=== PATIENT | female | born 1975 | race African-American/Black ===

== ENCOUNTER 2017-01-18 09:41 | Inpatient (IN) | payer OTHER ==
[2017-01-18 10:29] VITALS: BMI 22.6
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
[2017-01-18] MEDS ORDERED: guaiFENesin/D-METHORPHAN HB 10 ML UNIT-DOSE CUPS PO PRN (11:41)
[2017-01-18] MEDS ORDERED: IBUPROFEN 400 MG TABLET (FP) PO PRN (11:41)
[2017-01-18] MEDS ORDERED: MENTHOL/PHENOL 1 EACH UD MM PRN (11:41)
[2017-01-18] MEDS ORDERED: MAG HYDROX/AL HYDROX/SIMETH 30 ML UNIT-DOSE CUP PO PRN (11:41)
[2017-01-18] MEDS ORDERED: MAGNESIUM CITRATE 300 ML BOTTLE PO PRN (11:41)
[2017-01-18] MEDS ORDERED: LOPERAMIDE HCL 2 MG CAPSULE PO PRN (11:41)
[2017-01-18] MEDS ORDERED: P-EPHED 60MG/TRIPROLIDI 2.5MG TABLET PO PRN (11:41)
[2017-01-18] MEDS ORDERED: NICOTINE POLACRILEX 2 MG GUM BUC PRN (11:41)
[2017-01-18] MEDS ORDERED: ACETAMINOPHEN 325 MG TABLET (FP) PO PRN (11:41)
[2017-01-18] MEDS ORDERED: MAGNESIUM HYDROX 2400MG/30ML ORAL SUSPENSION 30 ML CUP PO PRN (11:41)
[2017-01-18] MEDS ORDERED: TUBERCULIN PPD 5 TU/0.1ML VIAL ID ONE (12:44)
[2017-01-18] MEDS: NICOTINE 21 MG/24 HOURS TOPICAL PATCH TD SCH (12:51)
[2017-01-18 14:00] LABS: MCH 34.1 pg (25.7-33.7); MEAN CELL VOLUME 100.2 fl (80-96); MEAN PLT VOLUME 8.9 fl (7.5-11.1); PLATELET COUNT 317 K/MM3 (134-434); RDW 13.2 % (11.6-15.6); WHITE BLOOD COUNT 7.5 K/mm3 (4.0-10.0)
[2017-01-18 15:34] LABS: ALBUMIN 4.1 g/dl (3.4-5.0); ALK PHOS 67 U/L (45-117); ANION GAP 9 (8-16); BILIRUBIN,TOTAL 0.4 mg/dL (0.2-1.0); CO2 26 mmol/L (21-32); COCKROFT - GAULT 84.1245; CREATININE 0.9 mg/dL (0.55-1.02); GLUCOSE,RANDOM 121 mg/dL (74-106); SGOT/AST 38 U/L (15-37); SGPT/ALT 37 U/L (12-78); TOT PROT 7.9 g/dl (6.4-8.2)
[2017-01-18 16:09] LABS: SICKLE CELL SCREEN NEGATIVE (NEGATIVE)
[2017-01-18 17:01] LABS: URINE APPEARANCE CLEAR; URINE BILIRUBIN NEGATIVE (NEGATIVE); URINE COLOR LTYELLOW; URINE GLUCOSE (UA) NEGATIVE (NEGATIVE); URINE KETONE NEGATIVE (NEGATIVE); URINE LEUK ESTERASE NEGATIVE (NEGATIVE); URINE NITRITE NEGATIVE (NEGATIVE); URINE PROTEIN NEGATIVE (NEGATIVE); URINE UROBILINOGEN NEGATIVE E.U./dl (0.2-1.0)
[2017-01-18 17:23] LABS: CALCIUM 9.7 mg/dL (8.5-10.1)
[2017-01-18 17:34] LABS: URINE BLOOD 2+ (NEGATIVE)
[2017-01-18 17:44] LABS: URINE MUCUS RARE; URINE RBC <1 /hpf (0-3); URINE WBC <1 /hpf (3-5)
[2017-01-18] MEDS: risperiDONE 0.5 MG TABLET (FP) PO SCH (21:47)
[2017-01-18] MEDS: MIRTAZAPINE 15 MG TABLET (FP) PO SCH (21:47)
[2017-01-18] MEDS: THIAMINE HCL 100 MG TABLET (FP) PO SCH (21:47)
[2017-01-19] MEDS: NICOTINE 21 MG/24 HOURS TOPICAL PATCH TD SCH (10:52)
[2017-01-19] MEDS: PRENATAL VITAMINS W/ FOLIC ACID TABLET (FP) PO SCH (10:52)
[2017-01-19] MEDS: risperiDONE 0.5 MG TABLET (FP) PO SCH ×2 (10:52→21:48)
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
[2017-01-19 12:07] LABS: HIV 1 & 2 AB NEGATIVE; HIV 1 AGp24 NEGATIVE
--- NOTE | 2017-01-19 13:13 | EKG ---
Test Reason : Blood Pressure : / mmHG Vent. Rate : 078 BPM Atrial Rate : 078 BPM P-R Int : 154 ms QRS Dur : 090 ms QT Int : 432 ms P-R-T Axes : 071 070 067 degrees QTc Int : 492 ms NORMAL SINUS RHYTHM PROLONGED QT ABNORMAL ECG NO PREVIOUS ECGS AVAILABLE Confirmed by MAYUR MICHELLE, ЮЛИЯ ([id number]) on 01/19/2017 1:12:59 PM Referred By: Re [place] Confirmed By:ЮЛИЯ MERCHANT MD
[2017-01-19] MEDS: MIRTAZAPINE 15 MG TABLET (FP) PO SCH (21:48)
[2017-01-19] MEDS: THIAMINE HCL 100 MG TABLET (FP) PO SCH (21:48)
[2017-01-20] MEDS: PRENATAL VITAMINS W/ FOLIC ACID TABLET (FP) PO SCH (11:11)
[2017-01-20] MEDS: NICOTINE 21 MG/24 HOURS TOPICAL PATCH TD SCH (11:11)
[2017-01-20] MEDS: risperiDONE 0.5 MG TABLET (FP) PO SCH ×2 (11:11→21:33)
[2017-01-20] MEDS: MIRTAZAPINE 15 MG TABLET (FP) PO SCH (21:33)
[2017-01-20] MEDS: THIAMINE HCL 100 MG TABLET (FP) PO SCH (21:34)
[2017-01-21] MEDS: NICOTINE 21 MG/24 HOURS TOPICAL PATCH TD SCH (10:22)
[2017-01-21] MEDS: risperiDONE 0.5 MG TABLET (FP) PO SCH ×2 (10:22→21:48)
[2017-01-21] MEDS: PRENATAL VITAMINS W/ FOLIC ACID TABLET (FP) PO SCH (10:22)
[2017-01-21] MEDS: THIAMINE HCL 100 MG TABLET (FP) PO SCH (21:48)
[2017-01-21] MEDS: diphenhydrAMINE HCL 50 MG CAPSULE PO PRN (21:48)
[2017-01-21] MEDS: MIRTAZAPINE 15 MG TABLET (FP) PO SCH (21:48)
[2017-01-22] MEDS: NICOTINE 21 MG/24 HOURS TOPICAL PATCH TD SCH (10:24)
[2017-01-22] MEDS: PRENATAL VITAMINS W/ FOLIC ACID TABLET (FP) PO SCH (10:24)
[2017-01-22] MEDS: risperiDONE 0.5 MG TABLET (FP) PO SCH ×2 (10:25→21:48)
[2017-01-22] MEDS: THIAMINE HCL 100 MG TABLET (FP) PO SCH (21:48)
[2017-01-22] MEDS: MIRTAZAPINE 15 MG TABLET (FP) PO SCH (21:49)
[2017-01-23] MEDS: PRENATAL VITAMINS W/ FOLIC ACID TABLET (FP) PO SCH (09:52)
[2017-01-23] MEDS: risperiDONE 0.5 MG TABLET (FP) PO SCH ×2 (09:52→21:57)
[2017-01-23] MEDS: NICOTINE 21 MG/24 HOURS TOPICAL PATCH TD SCH (09:53)
[2017-01-23] MEDS: THIAMINE HCL 100 MG TABLET (FP) PO SCH (21:57)
[2017-01-23] MEDS: MIRTAZAPINE 15 MG TABLET (FP) PO SCH (21:57)
[2017-01-24] MEDS: NICOTINE 21 MG/24 HOURS TOPICAL PATCH TD SCH (10:28)
[2017-01-24] MEDS: risperiDONE 0.5 MG TABLET (FP) PO SCH ×2 (10:28→21:38)
[2017-01-24] MEDS: PRENATAL VITAMINS W/ FOLIC ACID TABLET (FP) PO SCH (10:28)
[2017-01-24] MEDS: MIRTAZAPINE 15 MG TABLET (FP) PO SCH (21:38)
[2017-01-24] MEDS: THIAMINE HCL 100 MG TABLET (FP) PO SCH (21:38)
[2017-01-24] MEDS: diphenhydrAMINE HCL 50 MG CAPSULE PO PRN (21:38)
[2017-01-25] MEDS: risperiDONE 0.5 MG TABLET (FP) PO SCH ×2 (09:45→21:45)
[2017-01-25] MEDS: NICOTINE 21 MG/24 HOURS TOPICAL PATCH TD SCH (09:45)
[2017-01-25] MEDS: PRENATAL VITAMINS W/ FOLIC ACID TABLET (FP) PO SCH (09:45)
[2017-01-25] MEDS: diphenhydrAMINE HCL 50 MG CAPSULE PO PRN (21:45)
[2017-01-25] MEDS: THIAMINE HCL 100 MG TABLET (FP) PO SCH (21:45)
[2017-01-25] MEDS: MIRTAZAPINE 15 MG TABLET (FP) PO SCH (21:45)
[2017-01-26] MEDS: risperiDONE 0.5 MG TABLET (FP) PO SCH ×2 (10:16→21:34)
[2017-01-26] MEDS: PRENATAL VITAMINS W/ FOLIC ACID TABLET (FP) PO SCH (10:16)
[2017-01-26] MEDS: NICOTINE 21 MG/24 HOURS TOPICAL PATCH TD SCH (10:16)
[2017-01-26] MEDS: diphenhydrAMINE HCL 50 MG CAPSULE PO PRN (21:33)
[2017-01-26] MEDS: THIAMINE HCL 100 MG TABLET (FP) PO SCH (21:33)
[2017-01-26] MEDS: MIRTAZAPINE 15 MG TABLET (FP) PO SCH (21:33)
[2017-01-27] MEDS: NICOTINE 21 MG/24 HOURS TOPICAL PATCH TD SCH (10:44)
[2017-01-27] MEDS: PRENATAL VITAMINS W/ FOLIC ACID TABLET (FP) PO SCH (10:44)
[2017-01-27] MEDS: risperiDONE 0.5 MG TABLET (FP) PO SCH ×2 (10:44→21:31)
[2017-01-27] MEDS: THIAMINE HCL 100 MG TABLET (FP) PO SCH (21:31)
[2017-01-27] MEDS: MIRTAZAPINE 15 MG TABLET (FP) PO SCH (21:31)
[2017-01-27] MEDS: diphenhydrAMINE HCL 50 MG CAPSULE PO PRN (21:31)
[2017-01-28] MEDS: PRENATAL VITAMINS W/ FOLIC ACID TABLET (FP) PO SCH (10:23)
[2017-01-28] MEDS: NICOTINE 21 MG/24 HOURS TOPICAL PATCH TD SCH (10:24)
[2017-01-28] MEDS: risperiDONE 0.5 MG TABLET (FP) PO SCH ×2 (10:24→21:44)
[2017-01-28] MEDS: MIRTAZAPINE 15 MG TABLET (FP) PO SCH (21:44)
[2017-01-28] MEDS: diphenhydrAMINE HCL 50 MG CAPSULE PO PRN (21:44)
[2017-01-28] MEDS: THIAMINE HCL 100 MG TABLET (FP) PO SCH (21:44)
[2017-01-29 07:08] VITALS: BP 107/72; PULSE 84; TEMP 97.8
[2017-01-29] MEDS: PRENATAL VITAMINS W/ FOLIC ACID TABLET (FP) PO SCH (09:13)
[2017-01-29] MEDS: risperiDONE 0.5 MG TABLET (FP) PO SCH (09:13)
[2017-01-29] MEDS: NICOTINE 21 MG/24 HOURS TOPICAL PATCH TD SCH (09:16)
--- NOTE | 2017-01-31 16:43 | PN ---
[facility] Progress Note Note: Patient decided to continue to address her issues on outpatient basis stating that she is here for no reason and ready to be discharge.Patient has met her treatment goals partially and will continue to address her issues on outpatient basis.See staff notes for details.Patient was stable on discharge 01/29/17.
== END 2017-01-29 15:35 | disposition home or self-care (01) | DRG 772 ==
LOC: YASAS 09:41 → Y3E 11:18
PROVIDERS: ADMIT Psychiatry & Neurology Psychiatry; ATTEND Psychiatry & Neurology Psychiatry
PROC: HZ42ZZZ Group Counseling for Substance Abuse Treatment, Cognitive-Behavioral (ICD-10-PCS; principal; 2017-01-29)
DX: F14.20 Cocaine dependence, uncomplicated (principal); F16.20 Hallucinogen dependence, uncomplicated; F31.81 Bipolar II disorder; F43.10 Post-traumatic stress disorder, unspecified; M54.5 Low back pain
CPT/HCPCS: 36415; 80053; 81003; 81015; 85027; 85660; 86593; 87389; 93005; 93010

== ENCOUNTER 2017-07-23 10:14 | Inpatient (IN) | payer OTHER ==
[2017-07-23 10:46] VITALS: BMI 18.7
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
[2017-07-23] MEDS ORDERED: hydrOXYzine PAMOATE 50 MG CAPSULE (FP) PO PRN (11:28)
[2017-07-23] MEDS ORDERED: IBUPROFEN 400 MG TABLET (FP) PO PRN (11:28)
[2017-07-23] MEDS ORDERED: ACETAMINOPHEN 325 MG TABLET (FP) PO PRN (11:28)
[2017-07-23] MEDS ORDERED: MAG HYDROX/AL HYDROX/SIMETH 30 ML UNIT-DOSE CUP PO PRN (11:28)
[2017-07-23] MEDS ORDERED: NICOTINE POLACRILEX 4 MG GUM BUC PRN (11:28)
[2017-07-23] MEDS ORDERED: MENTHOL/PHENOL 1 EACH UD MM PRN (11:28)
[2017-07-23] MEDS ORDERED: guaiFENesin/D-METHORPHAN HB 10 ML UNIT-DOSE CUPS PO PRN (11:28)
[2017-07-23] MEDS ORDERED: LOPERAMIDE HCL 2 MG CAPSULE PO PRN (11:28)
[2017-07-23] MEDS ORDERED: MAGNESIUM HYDROX 2400MG/30ML ORAL SUSPENSION 30 ML CUP PO PRN (11:28)
[2017-07-23] MEDS ORDERED: MAGNESIUM CITRATE 300 ML BOTTLE PO PRN (11:28)
[2017-07-23] MEDS ORDERED: P-EPHED 60MG/TRIPROLIDI 2.5MG TABLET PO PRN (11:28)
[2017-07-23] MEDS ORDERED: chlordiazePOXIDE HCL 25 MG CAPSULE PO PRN (11:28)
[2017-07-23] MEDS ORDERED: diphenhydrAMINE HCL 50 MG CAPSULE PO PRN ×3 (11:35→22:00)
[2017-07-23] MEDS ORDERED: chlordiazePOXIDE HCL 25 MG CAPSULE PO ONE (13:15)
[2017-07-23 15:13] LABS: URINE APPEARANCE SLCLOUDY; URINE BILIRUBIN NEGATIVE (NEGATIVE); URINE BLOOD 1+ (NEGATIVE); URINE COLOR LTYELLOW; URINE GLUCOSE (UA) NEGATIVE (NEGATIVE); URINE KETONE NEGATIVE (NEGATIVE); URINE NITRITE NEGATIVE (NEGATIVE); URINE PROTEIN NEGATIVE (NEGATIVE); URINE UROBILINOGEN NEGATIVE mg/dL (0.2-1.0)
[2017-07-23 15:20] LABS: URINE HYALINE CAST 1 /lpf; URINE MUCUS RARE; URINE RBC 1 /hpf (0-3); URINE WBC <1 /hpf (3-5)
[2017-07-23] MEDS: chlordiazePOXIDE HCL 25 MG CAPSULE PO SCH ×2 (17:35→22:44)
[2017-07-23 17:48] LABS: URINE LEUK ESTERASE Negative (NEGATIVE)
[2017-07-23] MEDS: THIAMINE HCL 100 MG TABLET (FP) PO SCH (22:44)
[2017-07-24] MEDS: chlordiazePOXIDE HCL 25 MG CAPSULE PO SCH ×4 (05:52→22:35)
[2017-07-24 09:50] LABS: MCHC 33.4 g/dl (32.0-36.0); MEAN CELL VOLUME 101.8 fl (80-96); MEAN PLT VOLUME 8.5 fl (7.5-11.1); PLATELET COUNT 275 K/MM3 (134-434); RDW 12.3 % (11.6-15.6); WHITE BLOOD COUNT 7.8 K/mm3 (4.0-10.0)
[2017-07-24 10:07] LABS: ALK PHOS 73 U/L (45-117); ANION GAP 9 (8-16); BILIRUBIN,TOTAL 0.3 mg/dL (0.2-1.0); CO2 25 mmol/L (21-32); CREATININE 0.6 mg/dL (0.55-1.02); GLUCOSE,RANDOM 98 mg/dL (74-106); SGOT/AST 18 U/L (15-37); SGPT/ALT 21 U/L (12-78); TOT PROT 6.2 g/dl (6.4-8.2)
[2017-07-24] MEDS: PRENATAL VITAMINS W/ FOLIC ACID TABLET (FP) PO SCH (10:20)
[2017-07-24 10:46] LABS: SICKLE CELL SCREEN NEGATIVE (NEGATIVE)
[2017-07-24 11:14] LABS: HIV 1 & 2 AB NEGATIVE; HIV 1 AGp24 NEGATIVE
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
--- NOTE | 2017-07-24 15:05 | PN ---
[facility] CIWA - CIWA Score Nausea/Vomitin-No Nausea/No Vomiting Muscle Tremors: 3 Anxiety: 3 Agitation: 4-Moderately Restless Paroxysmal Sweats: 3 Orientation: 0-Oriented Tacttile Disturbances: 0-None Auditory Disturbances: 0-None Visual Disturbances: 0-None Headache: 0-None Present CIWA-Ar Total Score: 13 [facility] Progress Note (SOAP) Subjective: Restless,tremors,anxiety,sweating,interrupted sleep Objective: 07/24/17 15:04 Vital Signs - 8 hr 07/24/17 07/24/17 10:00 14:54 Temperature 98.1 F 98.1 F Pulse Rate 94 H 92 H Respiratory 18 18 Rate Blood Pressure 126/77 111/67 Laboratory Tests 07/23/17 07/24/17 07/24/17 13:50 07:30 07:30 WBC 7.8 RBC 3.86 Hgb 13.1 D Hct 39.2 MCV 101.8 H MCH 34.0 H MCHC 33.4 RDW 12.3 Plt Count 275 MPV 8.5 Sickle Cell Screen Negative Sodium 140 Potassium 3.9 Chloride 106 Carbon Dioxide 25 Anion Gap 9 BUN 10 Creatinine 0.6 D Creat Clearance w eGFR > 60 Random Glucose 98 Calcium 9.0 Total Bilirubin 0.3 D AST 18 D ALT 21 D Alkaline Phosphatase 73 Total Protein 6.2 L D Albumin 3.0 L D Urine Color Ltyellow Urine Appearance Slcloudy Urine pH 5.0 Ur Specific [place] 1.015 Urine Protein Negative Urine Glucose (UA) Negative Urine Ketones Negative Urine Blood 1+ H Urine Nitrite Negative Urine Bilirubin Negative Urine Urobilinogen Negative Ur Leukocyte Esterase Negative Urine RBC 1 Urine WBC <1 Ur Epithelial Cells Rare Hyaline Casts 1 Urine Mucus Rare RPR Titer HIV 1&2 Antibody Screen HIV P24 Antigen 07/24/17 07/24/17 07:30 07:30 WBC RBC Hgb Hct MCV MCH MCHC RDW Plt Count MPV Sickle Cell Screen Sodium Potassium Chloride Carbon Dioxide Anion Gap BUN Creatinine Creat Clearance w eGFR Random Glucose Calcium Total Bilirubin AST ALT Alkaline Phosphatase Total Protein Albumin Urine Color Urine Appearance Urine pH Ur Specific [place] Urine Protein Urine Glucose (UA) Urine Ketones Urine Blood Urine Nitrite Urine Bilirubin Urine Urobilinogen Ur Leukocyte Esterase Urine RBC Urine WBC Ur Epithelial Cells Hyaline Casts Urine Mucus RPR Titer Nonreactive HIV 1&2 Antibody Screen Negative HIV P24 Antigen Negative labs noted Assessment: 07/24/17 15:04 Withdrawal sx. Plan: Continue detox
[2017-07-24] MEDS: risperiDONE 0.5 MG TABLET (FP) PO SCH ×2 (15:28→22:35)
[2017-07-24] MEDS: THIAMINE HCL 100 MG TABLET (FP) PO SCH (22:35)
[2017-07-24] MEDS: MIRTAZAPINE 15 MG TABLET (FP) PO SCH (22:35)
[2017-07-25] MEDS: chlordiazePOXIDE HCL 25 MG CAPSULE PO SCH ×2 (05:23→10:11)
[2017-07-25] MEDS: PRENATAL VITAMINS W/ FOLIC ACID TABLET (FP) PO SCH (10:11)
--- NOTE | 2017-07-25 10:19 | EKG ---
Test Reason : Blood Pressure : / mmHG Vent. Rate : 096 BPM Atrial Rate : 096 BPM P-R Int : 146 ms QRS Dur : 088 ms QT Int : 394 ms P-R-T Axes : 000 146 149 degrees QTc Int : 497 ms NORMAL SINUS RHYTHM LEFT POSTERIOR FASCICULAR BLOCK PROLONGED QT ABNORMAL ECG WHEN COMPARED WITH ECG OF 23-JUL-2017 13:24, NO SIGNIFICANT CHANGE WAS FOUND Confirmed by THIERNO CORDERO MD ([id number]) on 07/25/2017 10:18:44 AM Referred By: Confirmed By:THIERNO CORDERO MD
[2017-07-25] MEDS: risperiDONE 0.5 MG TABLET (FP) PO SCH ×2 (10:34→22:14)
--- NOTE | 2017-07-25 11:53 | PN ---
[facility] CIWA - CIWA Score Nausea/Vomitin-No Nausea/No Vomiting Muscle Tremors: 4-Moderate,w/Arms Extend Anxiety: 3 Agitation: 3 Paroxysmal Sweats: 3 Orientation: 0-Oriented Tacttile Disturbances: 0-None Auditory Disturbances: 0-None Visual Disturbances: 0-None Headache: 0-None Present CIWA-Ar Total Score: 13 S Progress Note (SOAP) Subjective: sweats shakes interrupted sleep agitation Objective: 07/25/17 11:52 Vital Signs Temperature 98.1 F 07/25/17 10:16 Pulse Rate 99 H 07/25/17 10:16 Respiratory Rate 18 07/25/17 10:16 Blood Pressure 114/67 07/25/17 10:16 O2 Sat by Pulse Oximetry (%) Laboratory Tests 07/23/17 07/24/17 07/24/17 13:50 07:30 07:30 WBC 7.8 RBC 3.86 Hgb 13.1 D Hct 39.2 MCV 101.8 H MCH 34.0 H MCHC 33.4 RDW 12.3 Plt Count 275 MPV 8.5 Sickle Cell Screen Negative Sodium 140 Potassium 3.9 Chloride 106 Carbon Dioxide 25 Anion Gap 9 BUN 10 Creatinine 0.6 D Creat Clearance w eGFR > 60 Random Glucose 98 Calcium 9.0 Total Bilirubin 0.3 D AST 18 D ALT 21 D Alkaline Phosphatase 73 Total Protein 6.2 L D Albumin 3.0 L D Urine Color Ltyellow Urine Appearance Slcloudy Urine pH 5.0 Ur Specific [place] 1.015 Urine Protein Negative Urine Glucose (UA) Negative Urine Ketones Negative Urine Blood 1+ H Urine Nitrite Negative Urine Bilirubin Negative Urine Urobilinogen Negative Ur Leukocyte Esterase Negative Urine RBC 1 Urine WBC <1 Ur Epithelial Cells Rare Hyaline Casts 1 Urine Mucus Rare RPR Titer HIV 1&2 Antibody Screen HIV P24 Antigen 07/24/17 07/24/17 07:30 07:30 WBC RBC Hgb Hct MCV MCH MCHC RDW Plt Count MPV Sickle Cell Screen Sodium Potassium Chloride Carbon Dioxide Anion Gap BUN Creatinine Creat Clearance w eGFR Random Glucose Calcium Total Bilirubin AST ALT Alkaline Phosphatase Total Protein Albumin Urine Color Urine Appearance Urine pH Ur Specific [place] Urine Protein Urine Glucose (UA) Urine Ketones Urine Blood Urine Nitrite Urine Bilirubin Urine Urobilinogen Ur Leukocyte Esterase Urine RBC Urine WBC Ur Epithelial Cells Hyaline Casts Urine Mucus RPR Titer Nonreactive HIV 1&2 Antibody Screen Negative HIV P24 Antigen Negative aaox3 ambulating no acute distress Assessment: 07/25/17 11:52 withdrawal sx Plan: continue detox increase fluids
[2017-07-25] MEDS: chlordiazePOXIDE 5 MG CAPSULE PO SCH ×2 (17:43→22:14)
[2017-07-25] MEDS: MIRTAZAPINE 15 MG TABLET (FP) PO SCH (22:14)
[2017-07-25] MEDS: THIAMINE HCL 100 MG TABLET (FP) PO SCH (22:14)
[2017-07-26] MEDS: chlordiazePOXIDE 5 MG CAPSULE PO SCH ×2 (05:49→10:48)
--- NOTE | 2017-07-26 10:20 | PN ---
[facility] Progress Note (SOAP) Subjective: agitation sweats Objective: 07/26/17 10:19 Vital Signs Temperature 98.4 F 07/26/17 06:37 Pulse Rate 84 07/26/17 06:37 Respiratory Rate 18 07/26/17 06:37 Blood Pressure 112/68 07/26/17 06:37 O2 Sat by Pulse Oximetry (%) aaox3 ambulating no acute distress Assessment: 07/26/17 10:20 withdrawal sx Plan: continue detox d/c in am
[2017-07-26] MEDS: risperiDONE 0.5 MG TABLET (FP) PO SCH ×2 (10:48→22:36)
[2017-07-26] MEDS: PRENATAL VITAMINS W/ FOLIC ACID TABLET (FP) PO SCH (10:48)
[2017-07-26] MEDS: chlordiazePOXIDE HCL 10 MG CAPSULE PO SCH ×2 (18:59→22:36)
[2017-07-26] MEDS: MIRTAZAPINE 15 MG TABLET (FP) PO SCH (22:36)
[2017-07-26] MEDS: THIAMINE HCL 100 MG TABLET (FP) PO SCH (22:36)
[2017-07-27] MEDS: chlordiazePOXIDE HCL 10 MG CAPSULE PO SCH (05:51)
--- NOTE | 2017-07-27 09:23 | DS ---
[facility] Detox Discharge Summary Admission Date: 07/23/17 Discharge Date: 07/27/17 - History Present History: Alcohol Dependence, Cocaine Dependence - Physical Exam Results Vital Signs: Vital Signs Temperature 97.1 F L 07/27/17 06:46 Pulse Rate 80 07/27/17 06:46 Respiratory Rate 18 07/27/17 06:46 Blood Pressure 109/62 07/27/17 06:46 O2 Sat by Pulse Oximetry (%) - Treatment Hospital Course: Detox Protocol Followed, Detoxed Safely, Responded well, Discharged Condition Good, Rehab Referral Accepted - Medication Discharge Medications: Ambulatory Orders Mirtazapine [Remeron -] 15 mg PO HS #30 tablet 07/24/17 Risperidone [Risperdal -] 0.5 mg PO BID #60 tablet 07/24/17 - Diagnosis (1) Nicotine dependence Current Visit: Yes Status: Chronic Qualifiers: Nicotine product type: cigarettes Substance use status: uncomplicated Qualified Code(s): F17.210 - Nicotine dependence, cigarettes, uncomplicated; F17.210 - Nicotine dependence, cigarettes, uncomplicated (2) Alcohol dependence with uncomplicated withdrawal Current Visit: Yes Status: Chronic (3) Cocaine dependence, uncomplicated Current Visit: Yes Status: Chronic (4) Phencyclidine dependence Current Visit: Yes Status: Chronic - AMA Did Patient Leave Against Medical Advice: No (rehab at [facility])
[2017-07-27] MEDS: PRENATAL VITAMINS W/ FOLIC ACID TABLET (FP) PO SCH (10:15)
[2017-07-27] MEDS: risperiDONE 0.5 MG TABLET (FP) PO SCH (10:16)
[2017-07-27 11:25] VITALS: BP 104/62; PULSE 100; TEMP 98.8
== END 2017-07-27 10:42 | disposition other institution (70) | DRG 774 ==
LOC: YASAS 10:14 → Y6N 12:54
PROVIDERS: ADMIT Internal Medicine; ATTEND Internal Medicine
PROC: HZ2ZZZZ Detoxification Services for Substance Abuse Treatment (ICD-10-PCS; principal; 2017-07-23)
DX: F10.230 Alcohol dependence with withdrawal, uncomplicated (principal); F14.20 Cocaine dependence, uncomplicated; F16.20 Hallucinogen dependence, uncomplicated; F17.213 Nicotine dependence, cigarettes, with withdrawal; F31.81 Bipolar II disorder; F25.9 Schizoaffective disorder, unspecified; F43.10 Post-traumatic stress disorder, unspecified; M54.5 Low back pain; G89.29 Other chronic pain
CPT/HCPCS: 36415; 80053; 81003; 81015; 85027; 85660; 86593; 87389; 93005; 93010

== ENCOUNTER 2017-07-27 11:05 | Inpatient (IN) | payer OTHER ==
[2017-07-27] MEDS ORDERED: PNEUMOC 13-VAL CONJ-DIP CRM/PF 0.5 ML DISP.SYRIN IM ONE (11:28)
[2017-07-27 11:31] VITALS: BMI 20.8
[2017-07-27] MEDS ORDERED: MAG HYDROX/AL HYDROX/SIMETH 30 ML UNIT-DOSE CUP PO PRN (12:18)
[2017-07-27] MEDS ORDERED: MAGNESIUM HYDROX 2400MG/30ML ORAL SUSPENSION 30 ML CUP PO PRN (12:18)
[2017-07-27] MEDS ORDERED: guaiFENesin/D-METHORPHAN HB 10 ML UNIT-DOSE CUPS PO PRN (12:18)
[2017-07-27] MEDS ORDERED: MAGNESIUM CITRATE 300 ML BOTTLE PO PRN (12:18)
[2017-07-27] MEDS ORDERED: MENTHOL/PHENOL 1 EACH UD MM PRN (12:18)
[2017-07-27] MEDS ORDERED: NICOTINE POLACRILEX 2 MG GUM BUC PRN (12:18)
[2017-07-27] MEDS ORDERED: ACETAMINOPHEN 325 MG TABLET (FP) PO PRN (12:18)
[2017-07-27] MEDS ORDERED: hydrOXYzine PAMOATE 50 MG CAPSULE (FP) PO PRN (12:18)
[2017-07-27] MEDS ORDERED: P-EPHED 60MG/TRIPROLIDI 2.5MG TABLET PO PRN (12:18)
[2017-07-27] MEDS ORDERED: LOPERAMIDE HCL 2 MG CAPSULE PO PRN (12:18)
--- NOTE | 2017-07-27 12:21 | HP ---
JACKLYN [facility]HELLE Rehab Assess/Revision - Admission History Admitted to Rehab from: [facility] [place] Date of Admission to Rehab: 07/27/17 - Vital signs Vital Signs: Vital Signs Period Temp Pulse Resp BP Sys/Dixon Pulse Ox Last 24 Hr 97.8 F-97.8 F 102-102 107-107/70-70 - Findings Detox History & Physical reviewed: Yes Concur with findings: Yes Inpatient Rehab Admission - Initial Determination Are CD services needed?: Yes Free of communicable disease: Yes Not in need of hospitalization: Yes - Rehab Admission Criteria Comorbidities: Yes Patient is meeting Inpatient Rehab admission criteria:: Yes
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
[2017-07-27] MEDS: IBUPROFEN 400 MG TABLET (FP) PO PRN (18:37)
[2017-07-27] MEDS: THIAMINE HCL 100 MG TABLET (FP) PO SCH (21:44)
[2017-07-27] MEDS: MIRTAZAPINE 15 MG TABLET (FP) PO SCH (21:44)
[2017-07-27] MEDS: risperiDONE 0.5 MG TABLET (FP) PO SCH (21:44)
[2017-07-28] MEDS: IBUPROFEN 400 MG TABLET (FP) PO PRN ×2 (06:55→21:56)
[2017-07-28] MEDS: PRENATAL VITAMINS W/ FOLIC ACID TABLET (FP) PO SCH (10:45)
[2017-07-28] MEDS: risperiDONE 0.5 MG TABLET (FP) PO SCH ×2 (10:45→21:55)
[2017-07-28] MEDS: NICOTINE 14 MG/24 HOURS TOPICAL PATCH TD SCH (10:46)
[2017-07-28] MEDS ORDERED: PNEUMOCOCCAL 23 VACCINE 0.5 ML VIAL IM ONE (12:00)
[2017-07-28] MEDS ORDERED: FLU VACCINE QUAD 60 MCG/0.5 ML (MDV 17-18) IM ONE (12:00)
[2017-07-28] MEDS: MIRTAZAPINE 15 MG TABLET (FP) PO SCH (21:55)
[2017-07-28] MEDS: THIAMINE HCL 100 MG TABLET (FP) PO SCH (21:55)
[2017-07-29] MEDS: PRENATAL VITAMINS W/ FOLIC ACID TABLET (FP) PO SCH (10:54)
[2017-07-29] MEDS: risperiDONE 0.5 MG TABLET (FP) PO SCH ×2 (10:54→21:54)
[2017-07-29] MEDS: IBUPROFEN 400 MG TABLET (FP) PO PRN ×2 (10:55→21:54)
[2017-07-29] MEDS: NICOTINE 14 MG/24 HOURS TOPICAL PATCH TD SCH (10:56)
[2017-07-29] MEDS: THIAMINE HCL 100 MG TABLET (FP) PO SCH (21:54)
[2017-07-29] MEDS: MIRTAZAPINE 15 MG TABLET (FP) PO SCH (21:54)
[2017-07-30] MEDS: risperiDONE 0.5 MG TABLET (FP) PO SCH ×2 (10:48→21:58)
[2017-07-30] MEDS: PRENATAL VITAMINS W/ FOLIC ACID TABLET (FP) PO SCH (10:48)
[2017-07-30] MEDS: IBUPROFEN 400 MG TABLET (FP) PO PRN ×2 (10:48→21:59)
[2017-07-30] MEDS: NICOTINE 14 MG/24 HOURS TOPICAL PATCH TD SCH (10:50)
[2017-07-30] MEDS ORDERED: PT OWN MED DRAWER 7, Y5N ONE (20:02)
[2017-07-30] MEDS: MIRTAZAPINE 15 MG TABLET (FP) PO SCH (21:58)
[2017-07-30] MEDS: THIAMINE HCL 100 MG TABLET (FP) PO SCH (21:59)
[2017-07-31 07:41] VITALS: BP 106/66; PULSE 81; TEMP 98.1
[2017-07-31] MEDS: PRENATAL VITAMINS W/ FOLIC ACID TABLET (FP) PO SCH (10:21)
[2017-07-31] MEDS: risperiDONE 0.5 MG TABLET (FP) PO SCH (10:21)
[2017-07-31] MEDS: NICOTINE 14 MG/24 HOURS TOPICAL PATCH TD SCH (10:21)
--- NOTE | 2017-07-31 13:24 | PN ---
[facility] Progress Note Note: Called by nursing staff that patient requested to leave against medical advice. She is on Remeron 15 mg po HS and Risperdal 0.5 mg BID. Scripts for 30 days supply of these medications were electronically transmitted to [facility] at [address] [place] [address]
== END 2017-07-31 13:38 | disposition left against medical advice (07) | DRG 770 ==
LOC: YASAS 11:05 → Y3E 11:07
PROVIDERS: ADMIT Psychiatry & Neurology Psychiatry; ATTEND Psychiatry & Neurology Psychiatry
PROC: HZ42ZZZ Group Counseling for Substance Abuse Treatment, Cognitive-Behavioral (ICD-10-PCS; principal; 2017-07-27)
DX: F14.20 Cocaine dependence, uncomplicated (principal); F16.20 Hallucinogen dependence, uncomplicated; F17.210 Nicotine dependence, cigarettes, uncomplicated; F43.10 Post-traumatic stress disorder, unspecified; M54.5 Low back pain
CPT/HCPCS: 90688; 90732; G0008; G0009

== ENCOUNTER 2023-10-09 13:13 | Emergency (ER) | payer OTHER ==
[2023-10-09 13:19] VITALS: BP 116/78; PULSE 96; RESP 18; TEMP 98.1; BMI 20.1
[2023-10-09] MEDS ORDERED: ACETAMINOPHEN 325 MG TABLET (FP) PO ONE (14:28)
[2023-10-09] MEDS ORDERED: ACETAMINOPHEN 325 MG TABLET (FP) ONE (15:45)
== END 2023-10-09 17:21 | disposition left against medical advice (07) ==
LOC: JER 13:13 → JERFT 13:13 → JER 17:21
DX: M25.512 Pain in left shoulder (principal); R07.81 Pleurodynia; M79.652 Pain in left thigh; M25.522 Pain in left elbow; V03.99XA Pedestrian with other conveyance injured in collision with car, pick-up truck or van, unspecified whether traffic or nontraffic accident, initial encounter; Y92.410 Unspecified street and highway as the place of occurrence of the external cause
CPT/HCPCS: 70450-TC; 71045-TC-FY; 72125-TC; 72128-TC; 72131-TC; 72170-TC-FY; 73030-TC-LT-FY; 73060-TC-LT-FY; 73090-TC-LT-FY; 73552-TC-LT-FY; 99284-25

== ENCOUNTER 2024-03-31 22:22 | Emergency (ER) | payer OTHER ==
[2024-03-31 22:28] VITALS: BP 128/71; PULSE 95; RESP 17; TEMP 97.6; BMI 19.3
[2024-03-31] MEDS ORDERED: DIPHTH,PERTUSS(ACELL),TET 0.5 ML DISP.SYRIN IM ONE (23:16)
[2024-03-31] MEDS ORDERED: ACETAMINOPHEN 500 MG TABLET (FP) ONE (23:23)
[2024-03-31] MEDS: ACETAMINOPHEN 500 MG TABLET (FP) PO ONE (23:26)
== END 2024-03-31 23:35 | disposition home or self-care (01) ==
LOC: JER 22:22
DX: S01.01XA Laceration without foreign body of scalp, initial encounter (principal); M79.601 Pain in right arm; Y04.8XXA Assault by other bodily force, initial encounter
CPT/HCPCS: 99283-25

== ENCOUNTER 2024-08-13 05:07 | Emergency (ER) | payer OTHER ==
[2024-08-13 05:10] VITALS: BP 130/80; PULSE 65; RESP 17; TEMP 97.8; BMI 18.3
[2024-08-13 06:48] LABS: EPI CELLS 33 /uL (0-25.1); HYALINE CASTS 8 /uL (0-3.1); PH,URINE 5.5 (5.0-8.0); URINE APPEARANCE CLOUDY; URINE BACTERIA 855 /uL (0-1359); URINE BILIRUBIN NEGATIVE (NEGATIVE); URINE COLOR YELLOW; URINE GLUCOSE (UA) NEGATIVE (NEGATIVE); URINE KETONE NEGATIVE (NEGATIVE); URINE LEUK ESTERASE 1+ (NEGATIVE); URINE NITRITE NEGATIVE (NEGATIVE); URINE PROTEIN NEGATIVE (NEGATIVE); URINE RBC 16 /uL (0-23.9); URINE WBC 310 /uL (0-25.8)
== END 2024-08-13 07:10 | disposition left against medical advice (07) ==
LOC: JER 05:07
DX: M54.6 Pain in thoracic spine (principal); M54.50 Low back pain, unspecified; G89.29 Other chronic pain
CPT/HCPCS: 81003; 84703; 87086; 99283-25